=== PATIENT | female | born 1985 | race Caucasian/White ===

== ENCOUNTER 2018-05-10 11:19 | Emergency (ER) | payer BC ==
--- NOTE | 2018-05-10 11:37 | ERPHSYRPT ---
- History of Present Illness Time Seen by Provider: 05/10/18 11:37 Source: patient Exam Limitations: no limitations Physician History: 32 y/o white female presents with abscess on her left back for 9 days. pt was placed on bactrim ds. pt has appt with a surgeon on May 14. area not improving. Timing/Duration: day(s) (9) Quality: painful (mild) Severity: mild Location: other (left back) Associated Symptoms: swelling/mass/lumps Allergies/Adverse Reactions: No Known Drug Allergies Allergy (Unverified 05/10/18 12:35) - Review of Systems Constitutional: No Symptoms Eyes: No Symptoms Ears, Nose, & Throat: No Symptoms Respiratory: No Symptoms Cardiac: No Symptoms Abdominal/Gastrointestinal: No Symptoms Genitourinary Symptoms: No Symptoms Musculoskeletal: No Symptoms Skin: Other (abscess left back) Neurological: No Symptoms Psychological: No Symptoms Endocrine: No Symptoms Hematologic/Lymphatic: No Symptoms Immunological/Allergic: No Symptoms All Other Systems: Reviewed and Negative - Past Medical History Pertinent Past Medical History: Yes Neurological History: No Pertinent History ENT History: No Pertinent History Cardiac History: No Pertinent History Respiratory History: No Pertinent History Endocrine Medical History: No Pertinent History Musculoskeletal History: No Pertinent History GI Medical History: No Pertinent History History: No Pertinent History Psycho-Social History: No Pertinent History Female Reproductive Disorders: No Pertinent History - Past Surgical History Neuro Surgical History: No Pertinent History Cardiac: No Pertinent History Respiratory: No Pertinent History Gastrointestinal: No Pertinent History Genitourinary: No Pertinent History Musculoskeletal: No Pertinent History Female Surgical History: No Pertinent History - Nursing Vital Signs Nursing Vital Signs: Initial Vital Signs Temperature 100.8 F 05/10/18 11:31 Pulse Rate 82 05/10/18 11:31 Respiratory Rate 18 05/10/18 11:31 Blood Pressure 115/74 05/10/18 11:31 O2 Sat by Pulse Oximetry 97 05/10/18 11:31 Pain Scale Pain Intensity 7 - Physical Exam General Appearance: no apparent distress, alert Eye Exam: PERRL/EOMI, eyes nml inspection Ears, Nose, Throat Exam: normal ENT inspection, moist mucous membranes Neck Exam: normal inspection, non-tender, supple, full range of motion Respiratory Exam: normal breath sounds, lungs clear, airway intact, No chest tenderness, No respiratory distress, No accessory muscle use, No rhonchi, No wheezing, No stridor Cardiovascular Exam: regular rate/rhythm, normal heart sounds, normal peripheral pulses Gastrointestinal/Abdomen Exam: soft, normal bowel sounds, No tenderness, No guarding, No rebound Pelvic Exam: not done Rectal Exam: not done Back Exam: other (4cm x 3cm subq abscess.mild tenderness. 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 Skin Exam: other (see above back) SpO2 Interpretation: normal O2 Delivery: Room Air Procedures - Incision and Drainage Site: left back Anesthesia: emla topical Blade Size: 15 I & D Procedure: betadine prep Results: small amount pus Ordered Tests: Medication Summary Discontinued Medications Generic Name Dose Route Start Last Admin Trade Name Freq PRN Reason Stop Dose Admin Hydrocodone Bitart/Acetaminophen 1 tab 05/10/18 12:40 [place] 5/325 Mg PO 05/10/18 12:41 STAT ONE Lidocaine/Prilocaine Confirm 05/10/18 11:49 [place]ml[place] Cream 5 Gm Administered 05/10/18 11:50 Dose 5 gm TP .STK-MED ONE Lidocaine/Prilocaine 2.5 gm 05/10/18 11:50 05/10/18 11:54 Emla Cream 5 Gm TP 05/10/18 11:51 2.5 gm STAT ONE Administration - Progress Progress: improved, pain not gone completely, re-examined Counseled pt/family regarding: diagnosis, need for follow-up - Departure Time of Disposition: 12:45 Departure Disposition: Home Clinical Impression: Back abscess Condition: Stable Critical Care Time: No Referrals: YAHIR GUILLEN [Primary Care Provider] - Additional Instructions: keep area cleaned with soap and water daily. no lotions ointments or creams. cover with bandage after every cleansing. continue your antibiotics as prescribed. follow up with your general surgeon next week at scheduled appointment. add ibuprofen for pain. Prescriptions: Hydrocodone/APAP 5/325 [[place] 5/325 mg] 1 each PO Q8H PRN PRN #9 tablet MDD 3 PRN Reason: Pain
[2018-05-10] MEDS ORDERED: EMLA Cream 5 GM TP ONE ×2 (11:49→11:50)
[2018-05-10] MEDS ORDERED: NORCO 5/325 MG PO ONE (12:40)
[2018-05-10] MEDS ORDERED: NORCO 5/325 MG ONE (12:47)
[2018-05-10 12:58] VITALS: BP 97/62; PULSE 105; O2SAT 99
== END 2018-05-10 13:08 | disposition home or self-care (01) ==
LOC: ED 11:19
DX: L02.212 Cutaneous abscess of back [any part, except buttock and flank] (principal)
CPT/HCPCS: 10060; 87070; 99283; A9270-GY

== ENCOUNTER 2018-06-16 09:57 | Day surgery (SDC) | payer BC ==
[~2018-06-16 09:57] MED LIST: Lactated Ringers 0 ML IV ONE; Sensorcaine 0.25% 10 ML ONE
[2018-06-16] MEDS ORDERED: LIDOCAINE HCL 2% 100 MG/5 ML IJ ONE (09:58)
[2018-06-16] MEDS ORDERED: Versed 2 MG/2 ML Injection IV ONE (09:58)
[2018-06-16] MEDS ORDERED: DIPRIVAN 200 MG/20 ML IV ONE (09:58)
[2018-06-16] MEDS ORDERED: TORAdol 30 mg Injection IJ ONE (09:58)
[2018-06-16] MEDS ORDERED: SUBLIMAZE 100 MCG/2 ML IV ONE (09:58)
[2018-06-16] MEDS ORDERED: Lactated Ringers 1,000 ML IV ONE (11:03)
[2018-06-16] MEDS ORDERED: KEFZOL 1 GM ONE (12:03)
[2018-06-16] MEDS ORDERED: SUBLIMAZE 100 MCG/2 ML ONE (13:00)
[2018-06-16 14:03] VITALS: O2SAT 100
[2018-06-16 14:06] VITALS: BP 125/73; PULSE 78
--- NOTE | 2018-06-25 09:14 | OP ---
PROCEDURE DATE/TIME: 06/16/2018 1205 PREOPERATIVE DIAGNOSIS: Chronically infected back mass. POSTOPERATIVE DIAGNOSIS: Chronically infected back mass. PROCEDURE: Excision chronic back mass 6 x 3 cm. PROCEDURE PERFORMED BY: Jaqueline Keen M.D. COMPLICATIONS: None. ESTIMATED BLOOD LOSS: Minimal. ANESTHESIA: General. SPECIMEN: Back mass 6 x 3 cm. HISTORY: This is a 32 year-old female who has had a mass on her back which initially was not very significant. However, it became infected. She had to have this incised and drained by another physician and then she presented to me after she had been incised and drained as she was healing. We followed this. It did continue to further heal. It does appear to be chronically inflamed and she would like for it to be excised. I discussed all the risks, benefits and alternatives regarding the procedure. She has continued close follow up with me. The lesion appears to be of a stable point to resect. Acute inflammation and infection has resolved but she does have the chronic inflammatory response here as well as scarring and of course the cystic mass still remains. She was seen in the preoperative area. The site was marked with her awake and alert. DESCRIPTION OF PROCEDURE: She was then brought back to the operative suite. Anesthesia induced. She was prepped and draped in usual sterile fashion. A complete time out performed. We then made a diagonally oriented elliptical incision to completely encompass the mass, the inflamed overlying skin as well as the pit and tract from her prior I&D which were superior to the mass. To encompass all of the necessary tissue for resection I did have to make an ellipse of approximately 6 x 3 cm. We dissected down through skin to healthy tissue. I did completely encircle the cystic mass and removed the entire capsule of this mass as well as the tract from this mass up to the skin from the prior debridement all en bloc, this is sent to pathology. Stitch at 1200. We then irrigated thoroughly. We then raised flap inferiorly and superiorly. I placed a [place] drain due to the fact that this was a dirty wound with chronic inflammation. All remaining tissue is very healthy. I see no signs of active infection in remaining tissue. We then closed with loose vertical mattress sutures and then a sterile dressing. The patient tolerated the procedure very well. There were no immediate complications. She is going to follow up in approximately a week for wound healing check.
== END 2018-06-16 14:19 | disposition home or self-care (01) ==
LOC: SDC 09:57
PROVIDERS: ATTEND Surgery
DX: L72.0 Epidermal cyst (principal); Z79.899 Other long term (current) drug therapy
CPT/HCPCS: 82962; 84703; 88304; J0690; J1885; J2250; J2704; J3010